=== PATIENT | male | born 1990 | race Caucasian/White ===

== ENCOUNTER 2020-08-18 06:38 | Emergency (ER) | payer OTHER ==
[~2020-08-18] VITALS: Ht 188 cm; Wt 79.4 kg
[2020-08-18] MEDS ORDERED: ACETAMINOPHEN-1 EAC2 PO (08:14)
[2020-08-18] MEDS ORDERED: NAPROSYN500 MG PO (08:14)
[2020-08-18 08:22] VITALS: BP 149/93
== END 2020-08-18 08:23 | disposition home or self-care (01) ==
LOC: M.ERS 06:38
DX: S93.601A Unspecified sprain of right foot, initial encounter (principal); M25.571 Pain in right ankle and joints of right foot; W18.39XA Other fall on same level, initial encounter; Y93.89 Activity, other specified; Y92.89 Other specified places as the place of occurrence of the external cause; Y99.8 Other external cause status

== ENCOUNTER 2021-01-20 13:57 | Emergency (ER) | payer OTHER ==
[~2021-01-20] VITALS: Ht 188 cm; Wt 77.1 kg
[~2021-01-20 13:57] MED LIST: ACETAMINOPHEN-1 EAC2 PO; NAPROSYN500 MG PO
[2021-01-20] MEDS ORDERED: ALPRAZOLAM XR3 MG PO (14:12)
[2021-01-20] MEDS ORDERED: BELBUCA150 MCG SUBLING (14:12)
[2021-01-20] MEDS ORDERED: ALPRAZOLAM2 MG PO ×2 (14:22→14:41)
[2021-01-20 14:48] VITALS: BP 151/94
== END 2021-01-20 14:48 | disposition home or self-care (01) ==
LOC: M.ERS 13:57
DX: F41.9 Anxiety disorder, unspecified (principal); Z76.0 Encounter for issue of repeat prescription

== ENCOUNTER 2021-03-17 15:54 | Emergency (ER) | payer OTHER ==
[~2021-03-17] VITALS: Ht 188 cm; Wt 79.4 kg
[~2021-03-17 15:54] MED LIST changes: +ALPRAZOLAM XR3 MG PO; +ALPRAZOLAM2 MG PO; +BELBUCA150 MCG SUBLING
[2021-03-17 16:14] VITALS: BP 151/94
== END 2021-03-17 16:17 | disposition home or self-care (01) ==
LOC: M.ERS 15:54
DX: F41.0 Panic disorder [episodic paroxysmal anxiety] (principal)